=== PATIENT | female | born 1990 ===

== ENCOUNTER → 2020-01-17 | Outpatient (CLI) | payer OTHER | END | disposition home or self-care (01) | LOC: PRENATAL 15:00 | PROVIDERS: ATTEND Obstetrics & Gynecology Maternal & Fetal Medicine | DX: O35.0XX1 Maternal care for (suspected) central nervous system malformation in fetus, fetus 1 (principal); O35.3XX1 Maternal care for (suspected) damage to fetus from viral disease in mother, fetus 1; O98.512 Other viral diseases complicating pregnancy, second trimester; Z36.89 Encounter for other specified antenatal screening; Z3A.20 20 weeks gestation of pregnancy ==

== ENCOUNTER → 2020-05-17 | Outpatient (CLI) | payer OTHER ==
[~2020-05-17] MED LIST: PRENATAL CAPLE1 EAC1 PO; VITAMIN C500 M6 PO
== END | disposition home or self-care (01) ==
LOC: PRENATAL 16:29
PROVIDERS: ATTEND Obstetrics & Gynecology Maternal & Fetal Medicine
DX: O26.843 Uterine size-date discrepancy, third trimester (principal); O35.0XX1 Maternal care for (suspected) central nervous system malformation in fetus, fetus 1; O36.8931 Maternal care for other specified fetal problems, third trimester, fetus 1; Z36.89 Encounter for other specified antenatal screening; Z3A.36 36 weeks gestation of pregnancy

== ENCOUNTER 2020-05-24 13:16 | Outpatient (CLI) | payer OTHER | END 2020-05-24 18:14 | disposition home or self-care (01) | LOC: OBS/DEL 13:16 | PROVIDERS: ATTEND Obstetrics & Gynecology | DX: O76 Abnormality in fetal heart rate and rhythm complicating labor and delivery (principal); Z20.828 Contact with and (suspected) exposure to other viral communicable diseases ==

== ENCOUNTER 2020-05-30 20:39 | Inpatient (IN) | payer OTHER ==
[~2020-05-30] VITALS: Ht 170.2 cm; Wt 90.7 kg
[2020-05-31] MEDS ORDERED: PRENATAL CAPLE1 EAC1 PO (12:34)
[2020-05-31] MEDS ORDERED: VITAMIN C500 M6 PO (12:35)
== END 2020-06-02 13:15 | disposition home or self-care (01) | DRG 807 ==
LOC: LDR 20:39 → OB/GYN 05-31 17:32
PROVIDERS: ADMIT Obstetrics & Gynecology; ATTEND Obstetrics & Gynecology
PROC: 3E0P7VZ Introduction of Hormone into Female Reproductive, Via Natural or Artificial Opening (ICD-10-PCS; 2020-05-30)
PROC: 4A1HXFZ Monitoring of Products of Conception, Cardiac Rhythm, External Approach (ICD-10-PCS; 2020-05-30)
PROC: 10E0XZZ Delivery of Products of Conception, External Approach (ICD-10-PCS; principal; 2020-05-31)
PROC: 10907ZC Drainage of Amniotic Fluid, Therapeutic from Products of Conception, Via Natural or Artificial Opening (ICD-10-PCS; 2020-05-31)
PROC: 3E033VJ Introduction of Other Hormone into Peripheral Vein, Percutaneous Approach (ICD-10-PCS; 2020-05-31)
DX: O80 Encounter for full-term uncomplicated delivery (principal); Z37.0 Single live birth; Z3A.39 39 weeks gestation of pregnancy; Z20.822 Contact with and (suspected) exposure to COVID-19